=== PATIENT | female | born 1940 | race Caucasian/White ===

== ENCOUNTER → 2024-09-27 14:57 | Outpatient (REF) | payer MEDICARE, BC, SELFPAY | LOC: HWWDC 14:57 | PROVIDERS: ATTENDING PHYSICIAN Family Medicine | DX: Z12.31 Encounter for screening mammogram for malignant neoplasm of breast (principal) | CPT/HCPCS: 77063; 77067 ==

== ENCOUNTER → 2025-09-28 12:29 | Outpatient (REF) | payer MEDICARE, BC, SELFPAY | LOC: HWWDC 12:29 | PROVIDERS: ATTENDING PHYSICIAN Family Medicine | DX: Z12.31 Encounter for screening mammogram for malignant neoplasm of breast (principal) | CPT/HCPCS: 77063; 77067 ==